=== PATIENT | male | born 1995 | race Two or more races ===

== ENCOUNTER → 2024-07-24 | Outpatient (REF) | payer OTHER ==
[2024-07-24 14:51] LABS: SEMEN APPEARANCE OPAQUE (OPAQUE); SEMEN VISCOSITY LIQUID (LIQUID); SEMEN VOLUME 2.1 ML (2.0-5.0); SEMEN WBC <=1 M/ml (<=1 M/ml); SEMEN pH 8.5 (7.0-8.0)
== END ==
LOC: M LAB REF 13:35
PROVIDERS: ATTEND Physician Assistant
DX: Z31.41 Encounter for fertility testing (principal)

== ENCOUNTER → 2024-12-11 | Outpatient (CLI) | payer OTHER | LOC: M CARPUL 08:17 | PROVIDERS: ATTEND Student in an Organized Health Care Education/Training Program | DX: J45.30 Mild persistent asthma, uncomplicated (principal) ==